=== PATIENT | female | born 1980 | race Caucasian/White ===

== ENCOUNTER 2016-10-04 03:23 | Emergency (ER) | payer OTHER ==
[2016-10-04 03:36] VITALS: BP 144/79; BMI 47.3
[2016-10-04] MEDS ORDERED: PHENERGAN INJ 25 MG IVP ONE (03:56)
[2016-10-04] MEDS ORDERED: PROTONIX TAB 40 MG PO ONE ×2 (03:57→04:19)
[2016-10-04] MEDS ORDERED: NUBAIN INJ 200 MG VIAL MULTIDOSE IVP ONE (03:57)
--- NOTE | 2016-10-04 04:05 | DR.GENAD ---
HPI - PCP Primary Care Physician: ortega - Complaint/Symptoms Chief Complaint Doctors Comments: Abdominal pain, onset about 32 hrs. 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 She describes this as a steady, dull, twisting pain. She initially thought it was a gallbladder attack that is flaring up. She took some Motrin with so-so relief. There had been nausea but this has resolved. There is no associated fever or vomitting. She denies recent travel out of this general area or of consuming poorly prepared food items. Chief Complaint:: pt states" the pain started last thrusday i took a laxitive today and it made me go but i'm still hurting in my entire abd. i don't know if its gas or my gallbladder" - Nurses notes reviewed Nurses Notes Review: Yes - Source History Provided: Patient - Mode of Arrival Mode of Arrival: Ambulatory - Timing Onset of Chief Complaint: 09/28/16 Came on: Gradually - Duration Duration: Constant How lon Duration: Days - Location Location: epigastric abdomen - Severity Severity: Moderate - Modifying Factors Worsens:: nothing Improves:: Ibuprofen, earlier in its course. - Associated Signs and Symptoms Associated Signs and Symptoms: had nausea PMH - PMH Past Medical History: Yes Past Medical History: Depression Past Medical History Comment: Hx of: Gallstones, Pulm. embolism Past Surgical History: Yes Surgical History: Tonsillectomy - Family History History of Family Medical Conditions: No - Social History Alcohol Use: None Do you use any recreational Drugs:: No Lives With: Family Lives Where: Home - infectious screening In the last 2 months have you had wt loss of >10#?: NO Have you had fever, night sweats or hemotysis?: No Have you traveled outside the country in the last 6 months?: No Isolation: Standard ROS - Review of Systems Eyes: No Symptoms Reported ENTM: No Symptoms Reported Respiratoy: No Symptoms Reported Cardiovascular: No Symptoms Reported Gastrointestinal/Abdominal: Abdominal Pain (epigastic pain) Genitourinary: No Symptoms Reported Neurological: No Symptoms Reported Musculoskeletal: No Symptoms Reported Integumentary: No Symptoms Reported Hematologic/Lymphatic: No Symptoms Reported Endocrine: No Symptoms Reported Psychiatric: No Symptoms Reported PE - Vital Signs Vitals: Temperature 97.6 F Pulse Rate 80 Respiratory Rate 18 Blood Pressure 144/79 O2 Sat by Pulse Oximetry 100 - General Limitations: No Limitations General Appearance: Alert, In No Apparent Distress - Head Head Exam: Normal Inspection - Eyes Eye exam: Normal Appearance, PERRL, EOMI - ENT ENT Exam: Normal Exam External Ear Exam: Normal External Inspection TM/Canal Exam: Bilateral Normal Nose Exam: Normal Nose Exam Mouth Exam: Normal Inspection Throat Exam: Normal Inspection - Neck Neck Exam: Normal Inspection, Full ROM - Chest Chest Inspection: Normal Inspection, Symmetric Chest Wall Rise - Respiratory Respiratory Exam: Normal Lung Sounds Bilat Respiratory Exam: Bilateral Clear to Auscultation - Cardiovascular Cardiovascular Exam: Regular Rate, Normal Rhythm, +S1, +S2 - Abdominal Exam Abdominal Exam: Normal Inspection, Normal Bowel Sounds, Soft, Tenderness (RUQ + epigastrium) Abdominal Tenderness: RUQ, Epigastrium, Mild - Extremities Extremities Exam: Normal Inspection, Full ROM - Back Back Exam: Normal Inspection - Neurologic Neurological Exam: Alert, Oriented X3 - Psychiatric Psychiatric Exam: Normal Affect, Normal Mood - Skin Skin Exam: Warm, Dry, Intact, Normal Color MDM - Differential Diagnosis Differential Diagnosis: Pancreatitis; PUD/Gastritis; Cholelithiasis Course - Reevaluation 1st: Improved (at 0509 hrs.) ROR - Labs Reviewed Result Diagrams: 10/04/16 04:33 10/04/16 04:33 Laboratory: WBC 9.6 X10^3/uL (3.6-10.0) 10/04/16 04:33 RBC 4.87 X10^6/uL (3.5-5.4) 10/04/16 04:33 Hgb 13.3 g/dL (12.0-16.0) 10/04/16 04:33 Hct 37.7 % (36.0-47.0) 10/04/16 04:33 MCV 77.4 fL (80.0-100.0) L 10/04/16 04:33 MCH 27.3 pg (27.0-34.0) 10/04/16 04:33 MCHC 35.3 g/dL (33.0-35.0) H 10/04/16 04:33 RDW 15.2 % (11.6-16.5) 10/04/16 04:33 Plt Count 298 X10^3/uL (150.0-450.0) 10/04/16 04:33 MPV 7.5 fL (7.4-11.0) 10/04/16 04:33 Neut % 64.2 % (42.0-75.0) 10/04/16 04:33 Lymph % 24.5 % (21.0-51.0) 10/04/16 04:33 Calloway % 9.6 % (0.0-13.0) 10/04/16 04:33 Eos % 1.2 % (0.9-2.9) 10/04/16 04:33 Baso % 0.5 % (0.2-1.0) 10/04/16 04:33 Neut # 6.2 x10^3/uL (2.2-4.8) H 10/04/16 04:33 Lymph # 2.4 X10^3/uL (1.3-2.9) 10/04/16 04:33 Calloway # 0.9 x10^3/uL (0.3-0.8) H 10/04/16 04:33 Eos # 0.1 x10^3/uL (0.0-0.2) 10/04/16 04:33 Baso # 0.0 X10^3/uL (0.0-0.1) 10/04/16 04:33 Absolute Nucleated RBC 0.1 /100WBC 10/04/16 04:33 INR Target Range - 10/04/16 04:33 INR 1.55 (0.8-1.3) H 10/04/16 04:33 Sodium 140 mmol/L (136-145) 10/04/16 04:33 Corrected Sodium TNP 10/04/16 04:33 Potassium 3.3 mmol/L (3.5-5.1) L 10/04/16 04:33 Chloride 103 mmol/L (98-107) 10/04/16 04:33 Carbon Dioxide 24.8 mmol/L (21-32) 10/04/16 04:33 BUN 11 mg/dL (7-18) 10/04/16 04:33 Creatinine 0.88 mg/dL (0.55-1.02) 10/04/16 04:33 Est GFR (MDRD) Af Amer > 60 (>60) 10/04/16 04:33 Est GFR (MDRD) Non-Af > 60 (>60) 10/04/16 04:33 Glucose 103 mg/dL (65-99) H 10/04/16 04:33 Calcium 9.2 mg/dL (8.5-10.1) 10/04/16 04:33 Corrected Calcium TNP 10/04/16 04:33 Total Bilirubin 0.50 mg/dL (0.2-1.0) 10/04/16 04:33 AST 21 Units/L (15-37) 10/04/16 04:33 ALT 16 Units/L (12-78) 10/04/16 04:33 Alkaline Phosphatase 93 Units/L (46-116) 10/04/16 04:33 Total Protein 8.1 g/dL (6.4-8.2) 10/04/16 04:33 Albumin 3.8 g/dL (3.4-5.0) 10/04/16 04:33 Globulin 4.3 g/dL (2.5-4.5) 10/04/16 04:33 Albumin/Globulin Ratio 0.9 Ratio (1.1-2.1) L 10/04/16 04:33 Amylase 56 Units/L (25-115) 10/04/16 04:33 Lipase 119 Units/L (73-393) 10/04/16 04:33 HCG, Qual Negative <10 mIU/mL 10/04/16 04:33 - XRAY XRAY Interpreted by: Radiologist (Dilated GB with multiple stones. no other acute findings.) - Diagnosis Discharge Problem: Cholelithiasis, Hypokalemia - Discharge Plan Disposition: 01 HOME, SELF-CARE Condition: Stable - Follow ups/Referrals Follow ups/Referrals: DARNELL ORTEGA [Primary Care Provider] - 3 days - Instructions
[2016-10-04] MEDS ORDERED: NUBAIN INJ 200 MG VIAL MULTIDOSE IM ONE (04:14)
[2016-10-04] MEDS ORDERED: PHENERGAN INJ 25 MG IM ONE (04:15)
[2016-10-04] MEDS ORDERED: NUBAIN INJ 10 ONE (04:22)
[2016-10-04] MEDS ORDERED: PHENERGAN INJ 25 MG ONE (04:22)
--- NOTE | 2016-10-04 04:41 | CT ---
CT abdomen and pelvis without contrast Indication: Abdominal pain Technique: Helical images through the abdomen and pelvis without contrast. Coronal and sagittal refo rmats provided. Findings: Review of bone windows shows no destructive osseous lesion. Limited images through lower c hest show no acute abnormality. Abdomen: The liver, spleen, pancreas and adrenal glands are normal. The stomach, small bowel and colon are normal. The appendix is normal. Vasculature is normal. The ki dneys are normal. The gallbladder is dilated contains numerous calcified gallstones with central gas . Hyperdense sludge also present. Pelvis: Urinary bladder and rectum are normal. The uterus and necks are normal. Impression: 1. Gallbladder is dilated and contains multiple stones. Acute cholecystitis is possible. Correlate w ith right upper quadrant pain and followup ultrasound to confirm. 2. No other acute abnormality seen. Reported By:
[2016-10-04 04:46] LABS: BASOPHILS % (AUTO) 0.5 % (0.2-1.0); EOSINOPHILS # (AUTO) 0.1 x10^3/uL (0.0-0.2); EOSINOPHILS % (AUTO) 1.2 % (0.9-2.9); HEMATOCRIT 37.7 % (36.0-47.0); HEMOGLOBIN 13.3 g/dL (12.0-16.0); LYMPHOCYTES # (AUTO) 2.4 X10^3/uL (1.3-2.9); LYMPHOCYTES % (AUTO) 24.5 % (21.0-51.0); MEAN CORPUSCULAR HEMOGLOBIN 27.3 pg (27.0-34.0); MEAN CORPUSCULAR HGB CONC 35.3 g/dL (33.0-35.0); MEAN CORPUSCULAR VOLUME 77.4 fL (80.0-100.0); MEAN PLATELET VOLUME 7.5 fL (7.4-11.0); MONOCYTES # (AUTO) 0.9 x10^3/uL (0.3-0.8); MONOCYTES % (AUTO) 9.6 % (0.0-13.0); NEUTROPHILS # (AUTO) 6.2 x10^3/uL (2.2-4.8); NEUTROPHILS % (AUTO) 64.2 % (42.0-75.0); PLATELET COUNT 298 X10^3/uL (150.0-450.0); RED BLOOD COUNT 4.87 X10^6/uL (3.5-5.4); RED CELL DISTRIBUTION WIDTH 15.2 % (11.6-16.5); WHITE BLOOD COUNT 9.6 X10^3/uL (3.6-10.0)
[2016-10-04 04:57] LABS: ALANINE AMINOTRANSFERASE 16 Units/L (12-78); ALBUMIN 3.8 g/dL (3.4-5.0); ALKALINE PHOSPHATASE 93 Units/L (46-116); AMYLASE 56 Units/L (25-115); ASPARTATE AMINO TRANSFERASE 21 Units/L (15-37); BLOOD UREA NITROGEN 11 mg/dL (7-18); CALCIUM 9.2 mg/dL (8.5-10.1); CARBON DIOXIDE 24.8 mmol/L (21-32); CHLORIDE 103 mmol/L (98-107); CREATININE 0.88 mg/dL (0.55-1.02); GLUCOSE 103 mg/dL (65-99); LIPASE 119 Units/L (73-393); SODIUM 140 mmol/L (136-145); TOTAL PROTEIN 8.1 g/dL (6.4-8.2); eGFR BLACK RACES > 60 (>60); eGFR NON BLACK RACES > 60 (>60)
[2016-10-04 05:05] LABS: SERUM PREGNANCY TEST, QUAL NEGATIVE <10 mIU/mL
[2016-10-04] MEDS ORDERED: K-DUR TAB 20 MEQ PO ONE (05:23)
[2016-10-04] MEDS ORDERED: K-DUR TAB 20 MEQ PO SCH (09:00)
== END 2016-10-04 05:53 | disposition home or self-care (01) ==
LOC: ER 03:23
DX: K80.20 Calculus of gallbladder without cholecystitis without obstruction (principal); E87.6 Hypokalemia
CPT/HCPCS: 36415; 74176; 80053; 82150; 83690; 84703; 85025; 85610; 96372; 99283; A4216; A4222; J2300; J2550

== ENCOUNTER 2016-10-05 01:50 | Emergency (ER) | payer OTHER ==
[2016-10-05 01:57] VITALS: BP 144/79
[2016-10-05 02:06] VITALS: BMI 45.4
[2016-10-05] MEDS ORDERED: NS 1000 ML 1,000 ML IV ONE (04:57)
[2016-10-05] MEDS ORDERED: TORADOL 30 MG VIAL IVP ONE (04:58)
[2016-10-05] MEDS ORDERED: NS 1000 ML 1,000 ML ONE (05:00)
[2016-10-05] MEDS ORDERED: TORADOL 30 MG VIAL ONE (05:01)
[2016-10-05] MEDS ORDERED: ZOFRAN INJ 4 MG VIAL IVP ONE (05:02)
--- NOTE | 2016-10-05 05:02 | DR.GENAD ---
HPI - PCP Primary Care Physician: ORTEGA - Complaint/Symptoms Chief Complaint Doctors Comments: Patient was seen on last night diagnosed with a dilated gallbladder with multiple stones. Chief Complaint:: UPPER ABDOMEN PAIN, NAUSEA WITHOUT VOMITING - Source History Provided: Patient - Mode of Arrival Mode of Arrival: Ambulatory - Timing Onset of Chief Complaint: 10/04/16 PMH - PMH Past Medical History: Yes Past Medical History: Depression Past Surgical History: Yes Surgical History: Tonsillectomy - Family History History of Family Medical Conditions: No - Social History Does patient currently use any type of tobacco product: No Have you used tobacco products in the last 12 months: No Type of Tobacco Use: None Does any household member use tobacco: No Alcohol Use: None Do you use any recreational Drugs:: No Lives With: Spouse Lives Where: Home - infectious screening In the last 2 months have you had wt loss of >10#?: NO Have you had fever, night sweats or hemotysis?: No Have you traveled outside the country in the last 6 months?: No Isolation: Standard ROS - Review of Systems Eyes: No Symptoms Reported ENTM: No Symptoms Reported Respiratoy: No Symptoms Reported Cardiovascular: No Symptoms Reported Gastrointestinal/Abdominal: No Symptoms Reported Genitourinary: No Symptoms Reported Neurological: No Symptoms Reported Musculoskeletal: No Symptoms Reported Integumentary: No Symptoms Reported Hematologic/Lymphatic: No Symptoms Reported Endocrine: No Symptoms Reported Psychiatric: No Symptoms Reported All Other Systems: Reviewed and Negative PE - Vital Signs Vitals: Temperature 97.6 F Pulse Rate 88 Respiratory Rate 16 Blood Pressure 144/79 O2 Sat by Pulse Oximetry 99 - General Limitations: No Limitations General Appearance: Alert, In No Apparent Distress - Head Head Exam: Normal Inspection, Atraumatic - Eyes Eye exam: Normal Appearance, PERRL, EOMI - ENT ENT Exam: Normal Exam External Ear Exam: Normal External Inspection TM/Canal Exam: Bilateral Normal Nose Exam: Normal Nose Exam Mouth Exam: Normal Inspection Throat Exam: Normal Inspection - Neck Neck Exam: Normal Inspection - Chest Chest Inspection: Normal Inspection - Respiratory Respiratory Exam: Normal Lung Sounds Bilat Respiratory Exam: Bilateral Clear to Auscultation - Cardiovascular Cardiovascular Exam: Regular Rate - Abdominal Exam Abdominal Exam: Tenderness (RLQ) Abdominal Tenderness: RLQ, Suprapubic - Extremities Extremities Exam: Normal Inspection - Back Back Exam: Normal Inspection - Neurologic Neurological Exam: Alert, Oriented X3, CN II-XII Intact - Skin Skin Exam: Warm, Dry ROR - XRAY XRAY Interpreted by: Radiologist (RUQ ultrasound: Cholelithiasis without definite sonographic evidence for cholecystitis) - Diagnosis Discharge Problem: Cholelithiasis Qualifiers: Cholelithiasis location: gallbladder and bile duct Cholecystitis presence: without cholecystitis Biliary obstruction: without biliary obstruction Qualified Code(s): K80.70 - Calculus of gallbladder and bile duct without cholecystitis without obstruction - Discharge Plan Condition: Stable - Follow ups/Referrals Follow ups/Referrals: DARNELL ORTEGA [Primary Care Provider] - 3 days - Instructions
[2016-10-05] MEDS ORDERED: ZOFRAN INJ 4 MG VIAL ONE (05:29)
--- NOTE | 2016-10-05 06:26 | US ---
HISTORY: Cholelithiasis Study: Right upper quadrant ultrasound Comparison: CT abdomen pelvis October 04, 2016 Technique: Multiple grayscale sonographic images were obtained. Findings: The liver was normal in size and configuration and without evidence for cyst, mass, or biliary ducta l dilatation. Gallstones are present within the gallbladder. Gallbladder wall thickness was within n ormal limits. No pericholecystic fluid was identified. The common duct measured 5 millimeters. The r ight kidney measured 8.2 x 7.1 x 3.7 centimeters and demonstrated no solid masses, hydronephrosis, s tones, or perinephric fluid collections. The pancreas was not well demonstrated. IMPRESSION: Cholelithiasis without definite sonographic evidence for cholecystitis Reported By:
== END 2016-10-05 07:14 | disposition home or self-care (01) ==
LOC: ER 01:50
DX: K80.70 Calculus of gallbladder and bile duct without cholecystitis without obstruction (principal)
CPT/HCPCS: 76705; 96365; 96367; 96374; 96375; 99283; A4222; J1885; J2405